=== PATIENT | male | born 1995 | race Two or more races ===

== ENCOUNTER 2017-05-25 11:45 | Inpatient (IN) | payer SELFPAY ==
[~2017-05-25 11:45] MED LIST: DEXAMETHASONE SOD PHOSPHATE INJ 4 MG/1 ML VIAL ONE; SUCCINYLCHOLINE CHLORIDE INJ 200 MG/10 ML VIAL ONE
--- NOTE | 2017-05-25 11:56 | ER Document Report ---
ED Medical Screen (RME) - General Chief Complaint: Abscess Stated Complaint: POSSIBLE ABSCESS Time Seen by Provider: 05/25/17 11:54 Notes: 21-year-old male patient with rectal pain for 2 days, possible abscess. Past history of perianal abscesses requiring I&D under general anesthesia. No history of fever. I have greeted and performed a rapid initial assessment of this patient. A comprehensive ED assessment and evaluation of the patient, analysis of test results and completion of the medical decision making process will be conducted by additional ED providers. TRAVEL OUTSIDE OF THE [place] IN LAST 30 DAYS: No - Related Data Allergies/Adverse Reactions: No Known Allergies Allergy (Verified 05/25/17 11:46) Past Medical History Renal/ Medical History: Denies: Hx Peritoneal Dialysis Physical Exam - Vital signs Vitals: Temp Pulse Resp BP Pulse Ox 98.5 F 77 16 129/62 H 98 05/25/17 11:49 05/25/17 11:49 05/25/17 11:49 05/25/17 11:49 05/25/17 11:49 Course - Vital Signs Vital signs: Temp Pulse Resp BP Pulse Ox 98.5 F 77 16 129/62 H 98 05/25/17 11:49 05/25/17 11:49 05/25/17 11:49 05/25/17 11:49 05/25/17 11:49
--- NOTE | 2017-05-25 12:02 | ER Document Report ---
ED General - General Chief Complaint: Abscess Stated Complaint: POSSIBLE ABSCESS Time Seen by Provider: 05/25/17 11:54 Mode of Arrival: Ambulatory Information source: Patient Notes: 21-year-old male with prior history of rectal abscess presented today for evaluation of rectal pain for the past 3 days. Patient reported that pain is getting worse, associated with painful bowel movements, achy, constant, severity of symptoms is 8 out of 10. Patient denies any systemic signs of illness such as fevers, chills, nausea vomiting. Patient was previously I&D by Dr. Leung. TRAVEL OUTSIDE OF THE [place] IN LAST 30 DAYS: No - Related Data Allergies/Adverse Reactions: No Known Allergies Allergy (Verified 05/25/17 11:46) Past Medical History - Social History Smoking Status: Unknown if Ever Smoked Family History: Reviewed & Not Pertinent Renal/ Medical History: Denies: Hx Peritoneal Dialysis Review of Systems - Review of Systems Notes: REVIEW OF SYSTEMS: CONSTITUTIONAL: -fevers, -chills EENT: -eye pain, -difficulty swallowing, -nasal congestion CARDIOVASCULAR: -chest pain, -syncope. RESPIRATORY: -cough, -SOB GASTROINTESTINAL: -abdominal pain, -nausea, -vomiting, -diarrhea, + rectal pain GENITOURINARY: -dysuria, -hematuria MUSCULOSKELETAL: -back pain, -neck pain SKIN: -rash or skin lesions. HEMATOLOGIC: -easy bruising or bleeding. LYMPHATIC: -swollen, enlarged glands. NEUROLOGICAL: -altered mental status or loss of consciousness, -headache, - neurologic symptoms PSYCHIATRIC: -anxiety, -depression. ALL OTHER SYSTEMS REVIEWED AND NEGATIVE. Physical Exam - Vital signs Vitals: Temp Pulse Resp BP Pulse Ox 98.5 F 77 16 129/62 H 98 05/25/17 11:49 05/25/17 11:49 05/25/17 11:49 05/25/17 11:49 05/25/17 11:49 - Notes Notes: Reviewed vital signs and nursing note as charted by RN. CONSTITUTIONAL: Alert and oriented and responds appropriately to questions HEAD: Normocephalic; atraumatic EYES: PERRL; Conjunctivae clear ENT: normal nose; no rhinorrhea; moist mucous membranes; pharynx without lesions noted NECK: Supple without meningismus CARD: Regular rate and rhythm; no murmurs, no clicks, no rubs, no gallops; symmetric distal pulses RESP: Normal chest excursion without splinting or tachypnea; breath sounds clear and equal bilaterally ABD/GI: Normal bowel sounds; non-distended; soft, nontender Rectal: Normal external genitalia, patient has tenderness to palpation of the rectum at 3 o'clock position with mild induration extending into the rectum, examination consistent with rectal abscess BACK: The back appears normal and is non-tender to palpation EXT: Normal ROM in all joints; non-tender to palpation; no cyanosis, no effusions, no edema SKIN: Normal color for age and race; warm; dry; good turgor; capillary refill < 2 seconds; no acute lesions noted NEURO: Cranial nerves 3-12 intact. Motor strength 5/5 bilaterally PSYCH: The patient's mood and manner are appropriate. Grooming and personal hygiene are appropriate. Course - Re-evaluation Re-evalutation: 21-year-old with prior history of rectal abscess presented today with rectal pain for the past 3 days Differential diagnoses includes rectal abscess, perirectal abscess, fistula, intra-abdominal abscess We will obtain basic lab work including CBC, BMP, coags, blood cultures We will obtain CT scan of pelvis with contrast We will treat his pain with morphine We will give patient a dose of IV Clinda Reassess after imaging 05/25/17 14:07 Patient is doing well, CT scan with recurrent abscess of his deep rectum Patient has leukocytosis Case discussed with surgery on-call, Dr. Marte, agree with admission Admit to general surgical floor We will start patient on Zosyn as well as Fleet enema per surgery recommendation - Vital Signs Vital signs: Temp Pulse Resp BP Pulse Ox 98.5 F 77 16 129/62 H 98 05/25/17 11:49 05/25/17 11:49 05/25/17 11:49 05/25/17 11:49 05/25/17 11:49 - Laboratory Result Diagrams: 05/25/17 13:00 05/25/17 13:00 Laboratory results interpreted by me: 05/25/17 13:00 WBC 13.2 H Plt Count 120 L Seg Neuts % (Manual) 94 H Lymphocytes % (Manual) 4 L Monocytes % (Manual) 1 L Abs Neuts (Manual) 12.4 H - Diagnostic Test Radiology reviewed: Image reviewed - Rectal abscess Discharge - Discharge Clinical Impression: Rectal abscess Condition: Stable Disposition: ADMITTED INPATIENT Admitting Provider: Surgicalist Unit Admitted: Medical Floor
[2017-05-25] MEDS ORDERED: NORMAL SALINE 1000 ML 1,000 ML IV ONE (12:16)
[2017-05-25] MEDS ORDERED: CLINDAMYCIN PHOSPHATE INJ 300 MG/2 ML SDV IV ONE (12:16)
[2017-05-25] MEDS ORDERED: MORPHINE SULFATE 10 MG/ML INJ IV ONE (12:16)
[2017-05-25 13:22] LABS: HEMOGLOBIN 15.2 g/dL (13.5-17.0); MEAN CORPUSCULAR HGB CONC 35.2 g/dL (32.0-36.0); MEAN CORPUSCULAR VOLUME 91 fl (80-97); PLATELET COUNT 120 10^3/uL (150-450); RED BLOOD COUNT 4.74 10^6/uL (4.35-5.55); RED CELL DISTRIBUTION WIDTH 12.9 % (11.5-14.0); WHITE BLOOD COUNT 13.2 10^3/uL (4.0-10.5)
[2017-05-25 13:37] LABS: ANION GAP 15 (5-19); BLOOD UREA NITROGEN 13 mg/dL (7-20); CALCIUM 10.2 mg/dL (8.4-10.2); CARBON DIOXIDE 28 mmol/L (22-30); CHLORIDE 102 mmol/L (98-107); GLUCOSE 84 mg/dL (75-110); INTERNATIONAL RATION (INR) 0.97; POTASSIUM 4.2 mmol/L (3.6-5.0); PROTHROMBIN TIME 13.4 SEC (11.4-15.4); SODIUM 144.9 mmol/L (137-145)
[2017-05-25 13:54] LABS: ABSOLUTE LYMPHOCYTES# (MANUAL) 0.5 10^3/uL (0.5-4.7); ABSOLUTE MONOCYTES # (MANUAL) 0.1 10^3/uL (0.1-1.4); ABSOLUTE NEUTROPHILS# (MANUAL) 12.4 10^3/uL (1.7-8.2); BASOPHILS % (MANUAL) 1 % (0-2); EOSINOPHILS % (MANUAL) 0 % (0-6); LYMPHOCYTES % (MANUAL) 4 % (13-45); MONOCYTES % (MANUAL) 1 % (3-13); SEGMENTED NEUTROPHILS % (MAN) 94 % (42-78); TOTAL CELLS COUNTED 100
[2017-05-25 13:55] LABS: PLATELET COMMENT ADEQUATE; PLATELET GIANT PRESENT; TOXIC GRANULATION SLIGHT
--- NOTE | 2017-05-25 14:05 | RADIOLOGY REPORT (SQ) ---
EXAM DESCRIPTION: CT PELVIS WITH COMPLETED DATE/TIME: 05/25/2017 1:47 pm REASON FOR STUDY: rectal abscess COMPARISON: None. TECHNIQUE: CT scan of the pelvis performed with IV contrast. Images reviewed with soft tissue and b one windows. Reconstructed coronal and sagittal MPR images reviewed. All images stored on PACS. All CT scanners at this facility use dose modulation, iterative reconstruction, and/or weight based d osing when appropriate to reduce radiation dose to as low as reasonably achievable (ALARA). [facility]: Dose Right [facility]: CareDose [facility]: Dose Right [facility]: Teradose 4D [facility]: [employer] RADIATION DOSE: CT Rad equipment meets quality standard of care and radiation dose reduction techniq ues were employed. CTDIvol: 5.1 - 6.0 mGy. DLP: 438 mGy-cm. mGy. LIMITATIONS: None. FINDINGS: PELVIC BONES: No acute fracture. No worrisome bone lesions. VISUALIZED SPINE: No acute findings. HIP(S): No acute fracture or dislocation. No worrisome bone lesions. PELVIC SOFT TISSUES: No significant findings. EXTRAPELVIC SOFT TISSUES: There is asymmetric thickening involving the perianal soft tissues with a 2 .9 x 1.7 x 2.7 cm low attenuating region along the right aspect of the anal canal compatible with phl egmon. No definite abscess. OTHER: No other significant finding. IMPRESSION: INFLAMMATORY CHANGE INVOLVING THE PERIANAL SOFT TISSUES WITH 2.9 CM PHLEGMON ALONG THE R IGHT ASPECT OF THE ANAL CANAL. TECHNICAL DOCUMENTATION: JOB ID: [id number] Quality ID # [id number]: Final reports with documentation of one or more dose reduction techniques (e.g., Au tomated exposure control, adjustment of the mA and/or kV according to patient size, use of iterative reconstruction technique) 2010 [employer]- All Rights Reserved Reading location - IP/workstation name: [email or web address]
[2017-05-25] MEDS ORDERED: PIPERACILLIN/TAZOBACTAM 3.375 GM VIAL IV ONE (14:09)
[2017-05-25] MEDS ORDERED: NA PHOS,M-B/NA PHOS,DI-BA (ADULT) 133 ML ENEMA PR ONE (14:09)
--- NOTE | 2017-05-25 14:36 | PDOC H&P ---
History of Present Illness Admission Date/PCP: 05/25/17 Patient complains of: right perirectal pain History of Present Illness: NISA CRAFT JR is a 21 year old male with a c/o roght high perirectal pain. He had a similar problem on 08/02/16 when he underwent I&D of a left perirectal abscess. A CT scan of pelvis has been done today and it reveals a phlegmon @ 2.9 x 2.7 cm located in the high right perirectal area. The patient presents with a slight leukocytosis (13.2 with 94% neutrophils). Past Medical History GI Medical History: Reports: Other - I&D of right perirectal abscess (July 2016) Social History Smoking Status: Unknown if Ever Smoked Family History Family History: Reviewed & Not Pertinent Parental Family History Reviewed: Yes - diabetes (mother) Children Family History Reviewed: No Sibling(s) Family History Reviewed.: No Medication/Allergy Home Medications: No Home Medications 08/02/16 Allergies/Adverse Reactions: No Known Allergies Allergy (Verified 05/25/17 11:46) Physical Exam Vital Signs: Temp Pulse Resp BP Pulse Ox 98.5 F 77 16 129/62 H 98 05/25/17 11:49 05/25/17 11:49 05/25/17 11:49 05/25/17 11:49 05/25/17 11:49 Intake & Output 05/24/17 05/25/17 05/26/17 06:59 06:59 06:59 Weight 64.4 kg General appearance: PRESENT: no acute distress Eye exam: PRESENT: EOMI Mouth exam: PRESENT: moist Neck exam: PRESENT: full ROM Respiratory exam: PRESENT: clear to auscultation sonja Cardiovascular exam: PRESENT: RRR GI/Abdominal exam: PRESENT: soft Rectal exam: PRESENT: other - normal perianum and anus; tenderness onpalpation of the right peranum Results Laboratory Results: 05/25/17 13:00 05/25/17 13:00 05/25/17 05/25/17 13:00 13:00 WBC 13.2 H RBC 4.74 Hgb 15.2 Hct 43.0 MCV 91 MCH 32.0 MCHC 35.2 RDW 12.9 Plt Count 120 L Seg Neutrophils % Not Reportable Lymphocytes % Not Reportable Monocytes % Not Reportable Eosinophils % Not Reportable Basophils % Not Reportable Absolute Neutrophils Not Reportable Absolute Lymphocytes Not Reportable Absolute Monocytes Not Reportable Absolute Eosinophils Not Reportable Absolute Basophils Not Reportable Sodium 144.9 Potassium 4.2 Chloride 102 Carbon Dioxide 28 Anion Gap 15 BUN 13 Creatinine 0.75 Est GFR ( Amer) > 60 Est GFR (Non-Af Amer) > 60 Glucose 84 Calcium 10.2 Impressions: Pelvis CT 05/25/17 12:17 IMPRESSION: INFLAMMATORY CHANGE INVOLVING THE PERIANAL SOFT TISSUES WITH 2.9 CM PHLEGMON ALONG THE RIGHT ASPECT OF THE ANAL CANAL. Assessment & Plan - Plan Summary Plan Summary: A/ right perirectal abscess Hx of left perirectal abscess drained in July 2016 P/ NPO IVF Zosyn IVPB preop Plan exam under anesthesia, rigid proctosigmoidoiscopy, and drainage of perirectal abscess today Admission to follow
[2017-05-25] MEDS ORDERED: LIDOCAINE 2% INJ-PF (20 MG/ML) 10 ML AMPUL ONE (14:38)
[2017-05-25] MEDS ORDERED: ONDANSETRON HCL INJ/PF 4 MG/2 ML SDV ONE (14:39)
[2017-05-25] MEDS ORDERED: PROPOFOL INJ 200 MG/20 ML VIAL IV ONE (14:39)
[2017-05-25] MEDS ORDERED: MIDAZOLAM 2 MG/2 ML INJ ONE (14:39)
[2017-05-25] MEDS ORDERED: FENTANYL CITRATE INJ/PF 100 MCG/2 ML AMPUL ONE (14:39)
[2017-05-25] MEDS ORDERED: ACETAMINOPHEN 100 ML IV ONE (14:39)
[2017-05-25] MEDS ORDERED: ONDANSETRON HCL INJ/PF 4 MG/2 ML SDV IV PRN (15:52)
[2017-05-25] MEDS ORDERED: OXYCODONE-ACETAMINOPHEN 5-325 MG TABLET PO PRN ×2 (15:52)
[2017-05-25] MEDS ORDERED: MORPHINE SULFATE 10 MG/ML INJ IV PRN (15:52)
[2017-05-25] MEDS ORDERED: MEPERIDINE HCL/PF INJ 25 MG/1 ML DISP.SYRIN IV PRN (15:52)
[2017-05-25] MEDS ORDERED: PROMETHAZINE HCL INJ 25 MG/1 ML VIAL IV PRN ×2 (15:52)
[2017-05-25] MEDS ORDERED: FENTANYL CITRATE INJ/PF 100 MCG/2 ML AMPUL IV PRN ×3 (15:52)
[2017-05-25] MEDS ORDERED: DIPHENHYDRAMINE HCL 50 MG/ML VIAL IV PRN (15:52)
[2017-05-25] MEDS ORDERED: LIDOCAINE 0.5%/EPINEPHRINE INJ 50 ML VIAL ONE (16:06)
[2017-05-25] MEDS ORDERED: LIDOCAINE 1%/EPINEPHRINE INJ 20 ML VIAL INJ ONE (16:08)
[2017-05-25] MEDS ORDERED: LORAZEPAM INJ 2 MG/1 ML VIAL ONE (16:30)
--- NOTE | 2017-05-25 16:34 | Operative Report ---
Operative Report DATE OF SURGERY: 05/25/17 PREOPERATIVE DIAGNOSIS: right perirectal abscess POSTOPERATIVE DIAGNOSIS: same OPERATION: exam under anesthesia. rigid proctosigmoidoscopy. incision and drainage of perirectal abscess. right rectal fistulotomy SURGEON: GABO REYES ANESTHESIA: GA - plus 20 mL 1% lidocaine with epinephrine TISSUE REMOVED OR ALTERED: none COMPLICATIONS: none ESTIMATED BLOOD LOSS: < 5 mL INTRAOPERATIVE FINDINGS: large right perirectal abscess approximately 3 cm deep from the skin and at @ 9:00 pm, extending on the right of the distal rectum PROCEDURE: dictation
[2017-05-25] MEDS ORDERED: OXYCODONE-ACETAMINOPHEN 5-325 MG TABLET ONE (16:47)
[2017-05-25] MEDS ORDERED: NORMAL SALINE 1000 ML 1,000 ML IV PRN (17:11)
[2017-05-25] MEDS ORDERED: KETOROLAC TROMETHAMINE INJ/PF 30 MG/1 ML SDV IV PRN (17:14)
[2017-05-25] MEDS: DOCUSATE SODIUM 100 MG CAPSULE PO SCH (20:24)
[2017-05-25] MEDS ORDERED: PIPERACILLIN/TAZOBACTAM 3.375 GM VIAL IV PRN (21:00)
[2017-05-25] MEDS: PIPERACILLIN SODIUM/TAZOBACTAM 3.375 GM in NORMAL SALINE 100 ML IV SCH (21:19)
[2017-05-26] MEDS: PIPERACILLIN SODIUM/TAZOBACTAM 3.375 GM in NORMAL SALINE 100 ML IV SCH ×3 (02:12→14:11)
[2017-05-26 04:45] LABS: HEMATOCRIT 38.3 % (37.9-51.0); HEMOGLOBIN 13.6 g/dL (13.5-17.0); MEAN CORPUSCULAR HEMOGLOBIN 31.7 pg (27.0-33.4); MEAN CORPUSCULAR HGB CONC 35.6 g/dL (32.0-36.0); MEAN CORPUSCULAR VOLUME 89 fl (80-97); PLATELET COUNT 134 10^3/uL (150-450); RED CELL DISTRIBUTION WIDTH 12.6 % (11.5-14.0); WHITE BLOOD COUNT 18.6 10^3/uL (4.0-10.5)
[2017-05-26 05:03] LABS: ABSOLUTE LYMPHOCYTES# (MANUAL) 0.9 10^3/uL (0.5-4.7); ABSOLUTE MONOCYTES # (MANUAL) 0.9 10^3/uL (0.1-1.4); ABSOLUTE NEUTROPHILS# (MANUAL) 16.7 10^3/uL (1.7-8.2); BAND NEUTROPHILS % (MANUAL) 3 % (3-5); BASOPHILS % (MANUAL) 0 % (0-2); EOSINOPHILS % (MANUAL) 0 % (0-6); LYMPHOCYTES % (MANUAL) 5 % (13-45); MONOCYTES % (MANUAL) 5 % (3-13); SEGMENTED NEUTROPHILS % (MAN) 87 % (42-78); TOTAL CELLS COUNTED 100
[2017-05-26 05:05] LABS: PLATELET COMMENT DECREASED; PLATELET LARGE PRESENT; RBC MORPHOLOGY COMMENT NORMO-CYTIC/CHROMIC; TOXIC GRANULATION SLIGHT; TOXIC VACUOLATION PRESENT
[2017-05-26 05:09] LABS: ANION GAP 13 (5-19); BLOOD UREA NITROGEN 12 mg/dL (7-20); CALCIUM 9.3 mg/dL (8.4-10.2); CARBON DIOXIDE 22 mmol/L (22-30); CHLORIDE 105 mmol/L (98-107); GLUCOSE 119 mg/dL (75-110); POTASSIUM 4.1 mmol/L (3.6-5.0); SODIUM 139.7 mmol/L (137-145)
[2017-05-26] MEDS ORDERED: ENOXAPARIN SODIUM INJ 40 MG/0.4 ML DISP.SYRIN SUBCUT SCH (06:00)
[2017-05-26] MEDS ORDERED: NORMAL SALINE 1000 ML 1,000 ML IV PRN (08:24)
[2017-05-26] MEDS: DOCUSATE SODIUM 100 MG CAPSULE PO SCH (09:27)
[2017-05-26] MEDS ORDERED: POLYETHYLENE GLYCOL 3350 POWDER 17 GM/1 PACKET PO SCH (10:00)
[2017-05-26 12:20] VITALS: BP 122/60
--- NOTE | 2017-05-26 22:34 | DISCHARGE SUMMARY E ---
Discharge Summary NAME: NISA CRAFT : 1995 AGE: 21Y ADMITTED: 05/25/2017 DISCHARGED: 05/26/2017 REASON FOR ADMISSION: Perianal abscess. SUMMARY OF HOSPITALIZATION: The patient is a 21-year-old male, previous history of left perianal abscess, who presented to the Emergency Department complaining of pain on the right side. He underwent CT scan of the abdomen and pelvis which showed a right perianal abscess. Surgery was consulted and the patient was advised admission for definitive management. The patient was admitted to surgical service, kept n.p.o. on IV fluids. He was taken to the operating room by Dr. Rosa on the afternoon of 05/25 where he underwent examination under anesthesia, incision and drainage perianal abscess with right rectal fistulotomy. He tolerated the procedure well. There were no complications. The first postoperative day, he was getting out well, pain controlled, and starting sitz baths. He was felt to have received maximum benefit from the hospitalization and was discharged home. FINAL DIAGNOSES: Perianal abscess, right side, status post examination under anesthesia, rigid proctosigmoidoscopy, and fistulotomy by Dr. Rosa. DISPOSITION: The patient will be discharged home to the care of his family. Follow up with [facility] approximately 1-2 weeks. Continue sitz bath therapy. DICTATING PHYSICIAN: RAO ESCOBAR M.D. [id number] PHY#: [id number] ID: [id number] JOB#: [id number] ACCT: [id number] cc:Maira CORTES MD, M.D. MARSHALL B. FRINK, M.D. >
--- NOTE | 2017-05-28 16:00 | OPERATIVE REPORT E ---
Operative Report NAME: NISA CARFT : 1995 AGE: 21Y DATE OF SURGERY: 05/25/2017 ROOM: 414 PREOPERATIVE DIAGNOSIS: RIGHT PERIRECTAL ABSCESS. POSTOPERATIVE DIAGNOSIS: RIGHT PERIRECTAL ABSCESS. OPERATION: 1. Exam under anesthesia. 2. Rigid proctosigmoidoscopy. 3. Drainage of right perirectal abscess. 4. Right perirectal abscess fistulotomy. SURGEON: GABO REYES M.D. ESTIMATED BLOOD LOSS: Less than 5 mL of blood. FLUIDS: 600 URINE OUTPUT: Monitored. COMPLICATIONS: None. ANESTHESIA: General plus 20 mL of 1% lidocaine with epinephrine. INDICATION AND FINDINGS: This is a 21-year-old male who presented to the Emergency Room this morning complaining of rectal pain. A CAT scan was done revealing a high perirectal abscess located on the right side. The patient had a previous left perirectal abscess which was drained about 6 months ago. The patient denies rectal manipulations or being homosexual. A decision was made to take the patient to surgery to undergo exam under anesthesia. The decision was made to take the patient to surgery to undergo exam under anesthesia and drainage of the abscess. DESCRIPTION OF PROCEDURE: In the operating room, the patient was placed in the supine position. General anesthesia induced by endotracheal intubation. The patient was then placed in the lithotomy position. The perianal and rectum were prepped and draped in the usual fashion. A rectal dilator was inserted and the rectum was then irrigated with normal saline until clear. The patient preoperatively received a Fleet's enema; however, he was not able to evacuate the stools. After the stool was evacuated, a rigid proctosigmoidoscopy was performed after about 20 cm. The scope was slowly withdrawn and attention was paid to rectal right side. Slight hyperemia of the dentate line on the right was identified but not clear origin of the abscess was seen. At this point, the rigid proctosigmoidoscope was removed and a 21-gauge needle connected to a syringe was inserted through the right perianal area and at about 1.5 cm away from the rectal edge at 9 o' clock. The needle was then advanced and aspiration was performed. About 4.0 cm depth from the skin, a large amount of pus was obtained. This was aspirated and sent for aerobic and anaerobic culture and Gram stain. The insertion point of the needle was marked with a surgical marker. The needle was removed. The incision external to the anus was then performed about 1.5 cm long. This was deepened with Bovie until pus was obtained. After this was performed, a finger was inserted inside the cavity and this was advanced up to the rectum. The decision was made to insert a hemostat into the abscess cavity; the points of the hemostat were inserted through the cavity up to the end of the cavity itself and then curved through the rectum so to donovan the rectum. A fistulotomy was then performed by dividing the rectal fissure with the tissue above the hemostat so that a small amount of internal sphincter was divided together with the perianal tissue. After this was accomplished a small amount of pus was again obtained. The area was irrigated with a copious amount of normal saline until clear. Local bleeders were cauterized. After this was performed, the area was packed with a large piece of Surgicel and Gelfoam folded together in a cigarette roll fashion. Prior to this, local bleeders were cauterized with a Bovie. External dressings were then applied made with 4x4s and ABDs together with tape. The patient tolerated the procedure well, extubated, and transferred to recovery room in satisfactory condition. A pair of surgical underpants was then placed to keep the dressings in place. DICTATING PHYSICIAN: GABO REYES M.D. [id number] PHY#: [id number] ID: [id number] JOB#: [id number] ACCT: [id number] cc:GABO REYES M.D. > MTDD
--- NOTE | 2017-05-28 16:08 | OPERATIVE REPORT E ---
Operative Report NAME: NISA CRAFT : 1995 AGE: 21Y DATE OF SURGERY: 05/25/2017 ROOM: 414 ADDEND PROCEDURE: The procedure was done in the operating room. Patient was placed in a supine lithotomy position. The scrotum was tacked upward and the leroy-misael and perineum were prepped and draped in usual fashion. Rigid proctosigmoidoscopy was then performed up to about 20 cm. The scope was then advanced and slowly withdrawn. Despite multiple attempts, the obvious entry point of the abscess at the dentate line could not be identified. At this point, the rigid proctosigmoidoscopy was aborted, and a 10-gauge needle was inserted in the leroy-misael on the right, about 1 fingerbreadth distal to the anocutaneous junction, and advanced until a large amount of pus was aspirated. This was sent for aerobic and anaerobic culture and for gram stain. The needle was then removed. The insertion point of the needle was marked with a surgical marker, and a vertical incision was made parallel to the anus with a knife and then with Bovie, and advanced until the collection of pus was identified. After this, a hemostat was inserted through the incision and advanced as far as the abscess cavity allowed. At this point, a large rectal dilator was inserted and with Bovie, the anoderm as well as the rectal mucosa and a small portion of the internal rectus sphincter was divided over the hemostat to open the abscess cavity and complete the drainage. This was done without difficulty. Local hemostasis of the skin edges was obtained with Bovie. The area was irrigated with normal saline until clear, and injected with 1% lidocaine with epinephrine, about 20 mL. The incision was then packed with a large piece of Surgicel, Dermabond and sterile dressings were applied on the leroy-misael. At this point, the procedure was concluded. The patient was transferred to the stretcher and to the recovery room in satisfactory condition. DICTATING PHYSICIAN: GABO REYES M.D. [id number] PHY#: [id number] ID: [id number] JOB#: [id number] ACCT: [id number] cc:GABO REYES M.D. > MTDD
== END 2017-05-26 16:50 | disposition home or self-care (01) | DRG 346 ==
LOC: ER 11:45 → EH 14:45 → 4N 18:39
PROVIDERS: ADMIT Surgery; ATTEND Surgery
PROC: 0H88XZZ Division of Buttock Skin, External Approach (ICD-10-PCS; 2017-05-25)
PROC: 0D9P8ZZ Drainage of Rectum, Via Natural or Artificial Opening Endoscopic (ICD-10-PCS; principal; 2017-05-25 15:30)
DX: K61.1 Rectal abscess (principal)
CPT/HCPCS: 36415; 72193; 80048; 85025; 85610; 87040; 87070; 87075; 87077; 87186; 87205; 902; 96365; 96375; 99285; J0131; J0330; J1100; J1885; J2060; J2250; J2270; J2405; J2543; J2704; J3010; J3490; J7030